=== PATIENT | female | born 1975 | race African-American/Black ===

== ENCOUNTER 2022-11-18 17:53 | Emergency (ER) | payer BC, OTHER ==
[2022-11-18] MEDS ORDERED: Aspirin 81 MG Tab.Chew PO ONE (18:48)
[2022-11-18] MEDS ORDERED: Nitroglycerin 0.4 MG Tab.SL SL ONE (18:48)
[2022-11-18 18:54] LABS: BASOPHILS ABSOLUTE AUTO 0.03 K/mm3 (0.01-0.08); BASOPHILS PERCENT AUTO 0.7 % (0.1-1.2); EOSINOPHILS ABSOLUTE AUTO 0.09 K/mm3 (0.04-0.36); EOSINOPHILS PERCENT AUTO 2.2 (0.7-5.8); HEMATOCRIT 40.9 % (34.1-44.9); HEMOGLOBIN 13.1 gm/dl (11.2-15.7); LYMPHOCYTES ABSOLUTE AUTO 1.56 K/mm3 (1.18-3.74); LYMPHOCYTES PERCENT AUTO 37.5 % (19.3-51.7); MEAN CORPUSCULAR HEMOGLOBIN 27.1 pg (25.6-32.2); MEAN CORPUSCULAR VOLUME 84.7 fl (79.4-94.8); MEAN PLATELET VOLUME 10.9 fl (9.4-12.3); MONOCYTES ABSOLUTE AUTO 0.39 K/mm3 (0.24-0.36); MONOCYTES PERCENT AUTO 9.4 % (4.7-12.5); NEUTROPHILS ABSOLUTE AUTO 2.09 K/mm3 (1.56-6.13); NEUTROPHILS PERCENT AUTO 50.2 % (34.0-71.1); PLATELET COUNT,PLT 263 K/mm3 (182-369); RED BLOOD CELL COUNT 4.83 M/mm3 (3.98-5.22); WHITE BLOOD CELL COUNT,WBC 4.16 K/mm3 (3.98-10.04)
[2022-11-18 19:11] LABS: INR 1.12; PROTHROMBIN TIME 11.9 SECONDS (9.7-12.0)
[2022-11-18 19:12] LABS: D-DIMER QUANTITATIVE 0.46 mg/L (0.19-0.50)
[2022-11-18 19:13] LABS: PTT,PARTIAL THROMBOPLSTIN TIME 30.6 SECONDS (21.7-31.4)
[2022-11-18 19:18] LABS: A/G RATIO 0.8 (1-2); ALANINE AMINOTRANSFERASE,ALT 19 U/L (14-59); ALBUMIN 3.6 g/dl (3.4-5.0); ALKALINE PHOSPHATASE 42 U/L (46-116); ANION GAP 9.8 (5-15); ASPARTATE AMNIOTRANSFERASE,AST 21 U/L (15-37); BILIRUBIN TOTAL 0.6 mg/dL (0.2-1.0); BLOOD UREA NITROGEN,BUN 12 mg/dL (7-18); C-REACTIVE PROTEIN 0.7 mg/dL (<1.0); CALCIUM 8.9 mg/dL (8.5-10.1); CARBON DIOXIDE,CO2 29 mEq/L (21-32); CHLORIDE,CL 100 mEq/L (98-107); ESTIMATED GFR 69 mL/min (>60); GLUCOSE RANDOM 88 mg/dL (70-99); POTASSIUM,K 2.8 mEq/L (3.5-5.1); PROTEIN TOTAL,TP 8.3 g/dl (6.4-8.2); SODIUM,NA 136 mEq/L (136-145)
[2022-11-18 19:20] LABS: TROPONIN I HIGH SENSITIVITY 72 pg/mL (<=51)
[2022-11-18] MEDS ORDERED: Nitroglycerin 0.3 MG Tab.SL SL ONE (19:25)
== END 2022-11-18 22:54 | disposition home or self-care (01) ==
LOC: JD.ED 17:53
DX: R07.9 Chest pain, unspecified (principal); I10 Essential (primary) hypertension
CPT/HCPCS: 36415; 71045; 80053; 84484; 85025; 85379; 85610; 85730; 86140; 93005; 99285; A9270; 93010; 99283